=== PATIENT | male | born 1995 | race Caucasian/White ===

== ENCOUNTER 2017-08-23 23:09 | Emergency (ER) | payer OTHER ==
[~2017-08-23] VITALS: Ht 172.7 cm; Wt 63.0 kg
[2017-08-23 23:17] VITALS: Ht 172.7 cm; Wt 63.0 kg
[2017-08-23 23:50] LABS: INFLUENZA B ANTIGEN Neg for Influ B (NEG)
[2017-08-24] MEDS ORDERED: ALBUTEROL HFA 8 GM INHALER INH ONE (00:30)
--- NOTE | 2017-08-24 00:41 | EMERGENCY ROOM VISIT NOTE ---
History First contact with patient: 00:00 Chief Complaint: FLU LIKE SX Stated Complaint: HIGH FEVER, FLU LIKE SYMPTOMS, COUGH,CHEST PRESSUR History of Present Illness The patient is a 22 year old male who presents to the Emergency Room with complaints of flulike symptoms. The patient reports that for the past 2 days, he has had fevers/chills, bodyaches, sore throat and cough. He reports that his temperature has been steadily increasing. He did take some hollis seltzer flu which initially helped his symptoms. He denies any sick contacts. He denies neck pain/stiffness, headache, chest pain, abdominal pain, diarrhea, nausea or vomiting. Review of Systems A complete 10 point review of systems was reviewed with the patient with pertinent positives and negatives as per history of present illness. All else were negative. Past Medical/Surgical History Medical Problems: (1) No significant past medical history Surgical Problems: (1) No significant past surgical history Social History Smoking Status: Never Smoker Marital Status: single Housing Status: lives with roommate Occupation Status: [employer] Current/Historical Medications No Active Prescriptions or Reported Meds Physical Exam Vital Signs Date Time Temp Pulse Resp B/P (MAP) Pulse Ox O2 Delivery O2 Flow Rate FiO2 08/24/17 00:50 37.8 82 18 142/89 97 Room Air 08/23/17 23:17 37.6 110 20 134/87 95 Room Air Physical Exam VITALS: Vitals are noted on the nurse's note and reviewed by myself. Vital signs stable. GENERAL: This is a 22-year-old male, in no acute distress, nondiaphoretic, well- developed well-nourished. SKIN: The skin was without rashes. EARS: External auditory canals clear, tympanic membranes pearly elise without erythema or effusion bilaterally. EYES: Pupils equal round and reactive to light and accommodation. NOSE: Patent, turbinates without inflammation or discharge. MOUTH: Mucous membranes moist. Tonsils are not enlarged. The posterior oropharynx is minimally erythematous. NECK: Supple without nuchal rigidity. No lymphadenopathy. HEART: Regular rate and rhythm without murmurs gallops or rubs. LUNGS: Clear to auscultation bilaterally without wheezes, rales or rhonchi. ABDOMEN: Soft, nontender to palpation. NEURO: Patient was alert and oriented to person place and time. Medical Decision & Procedures Laboratory Results Test 08/23/17 23:25 Influenza Type A Antigen POS for Influ A (NEG) Influenza Type B Antigen Neg for Influ B (NEG) Medications Administered Medications (Trade) Dose Ordered Sig/Lucien Route Start Time Stop Time Status Last Admin Dose Admin Albuterol (Ventolin Hfa Inhaler) 2 puffs NOW ONCE INH 08/24/17 00:30 08/24/17 00:31 DC 08/24/17 00:49 2 PUFFS Medical Decision Differential diagnosis includes influenza, viral upper respiratory infection, pneumonia, strep pharyngitis, among others. The patient was evaluated as above. He presents with flulike symptoms for the past 2 days. A rapid influenza test was performed and was positive for influenza A. Risks/benefits of Tamiflu were discussed with the patient, including cost, side effects and efficacy. The patient declined a prescription for Tamiflu at this time. He has no history of immunocompromise and is not a high risk patient. Conservative measures were discussed at length with the patient, including rest, OTC antipyretics, and increase fluid intake. He was encouraged to follow-up with [facility] as needed and return here for any worsening or new/concerning symptoms. He verbalized understanding of my assessment and treatment plan and was discharged home in good condition. Medication Reconcilliation Current Medication List: was personally reviewed by me Blood Pressure Screening Patient's blood pressure: Normal blood pressure Impression Primary Impression: Influenza A Departure Information Dispostion Home / Self-Care Condition GOOD Prescriptions No Active Prescriptions or Reported Meds Referrals [facility] (PCP) Patient Instructions ED Flu, [facility] Additional Instructions You were diagnosed with influenza A. This is a viral infection. For pain/fever control, you can use the following [id number] medicines ( if >12 yo): - Extra strength (500mg/tab) Tylenol (acetaminophen) 2 tabs every 4-6 hours as needed. Do not exceed 12 tablets in a 24 hour period. Avoid taking more than 4 grams (4000 mg) of Tylenol per day. This includes any other sources of acetaminophen you may take on a regular basis. - Regular strength (200 mg/tab) Advil (ibuprofen) 3-4 tabs every 6 hours as needed. Do not exceed a dose of 3200 mg per day. Use the albuterol inhaler, 2 puffs every 4-6 hours as needed for chest tightness /shortness of breath. Make sure to rest and drink plenty of fluids. Follow-up with [facility] this week and he had any worsening or new/concerning symptoms. Return to the emergency department with worsening shortness of breath, vomiting and inability to keep any fluids down, or any other new/concerning symptoms.
[2017-08-24 00:50] VITALS: BP 142/89; PULSE 82; TEMP 37.8; O2SAT 97
== END 2017-08-24 00:56 | disposition home or self-care (01) ==
LOC: C.EDB 23:11 → C.EDC 08-24 00:56
DX: J10.1 Influenza due to other identified influenza virus with other respiratory manifestations (principal)